=== PATIENT | female | born 1980 | race Caucasian/White ===

== ENCOUNTER 2016-10-19 01:17 | Emergency (ER) | payer OTHER ==
[~2016-10-19] VITALS: Ht 177.8 cm; Wt 71.0 kg
[2016-10-19 02:18] VITALS: BP 126/74
== END 2016-10-19 02:19 | disposition home or self-care (01) ==
LOC: EME 01:17
DX: S61.230A Puncture wound without foreign body of right index finger without damage to nail, initial encounter (principal); W46.1XXA Contact with contaminated hypodermic needle, initial encounter; Z77.21 Contact with and (suspected) exposure to potentially hazardous body fluids; Y92.239 Unspecified place in hospital as the place of occurrence of the external cause; Y93.89 Activity, other specified; Y99.0 Civilian activity done for income or pay
CPT/HCPCS: 99281; 99284